=== PATIENT | female | born 1965 | race Caucasian/White ===

== ENCOUNTER 2016-05-01 16:34 | Emergency (ER) | payer OTHER ==
[2016-05-01 16:41] VITALS: BP 121/75; PULSE 83; TEMP 97.9; BMI 32.9
--- NOTE | 2016-05-01 19:26 | PDOC ---
History of Present Illness - General Chief Complaint: Rash Stated Complaint: BITE/FEVER Time Seen by Provider: 05/01/16 19:03 History Source: Patient Exam Limitations: No Limitations - History of Present Illness Initial Comments: 05/01/16 19:29 My chief complaint: itchy painful rash right buttocks History of present illness: Patient is a 50-year-old female with a history of asthma here today complaining of itchy painful rash to her right buttocks that started yesterday. Patient reports having the chickenpox 30 + years ago. Patient reports that area is painful presently a 5 out of 10 patient does not want anything for pain here. Patient reports that she felt feverish yesterday. Patient denies any rash anywhere else.. Patient denies any radiation of rash from right buttocks. 05/01/16 19:31 05/01/16 23:12 Timing/Duration: getting worse Severity: moderate Associated Symptoms: reports: rash Past History - Past Medical History Allergies/Adverse Reactions: Allergies Allergy/AdvReac Type Severity Reaction Status Date / Time No Known Allergies Allergy Verified 05/01/16 16:38 Home Medications: Ambulatory Orders Naproxen [Naprosyn -] 500 mg PO BID #20 tablet 04/17/15 Acyclovir [Zovirax -] 800 mg PO 5XD #35 tablet MDD 5 05/01/16 Asthma: Yes - Immunization History Immunization Up to Date: Yes - Psycho/Social/Smoking Cessation Hx Anxiety: No Suicidal Ideation: No Smoking Status: No Smoking History: Never smoked Have you smoked in the past 12 months: No Number of Cigarettes Smoked Daily: 0 Information on smoking cessation initiated: No Hx Alcohol Use: No Drug/Substance Use Hx: No Substance Use Type: None Review of Systems - Review of Systems Constitutional: No: Symptoms Reported HEENTM: No: Symptoms Reported Respiratory: No: Symptoms reported Cardiac (ROS): No: Symptoms Reported ABD/GI: No: Symptoms Reported Integumentary: Yes: Rash (tiny beige vesicles rt. buttock) Neurological: No: Symptoms reported *Physical Exam - Vital Signs Last Vital Signs Temp Pulse Resp BP Pulse Ox 97.9 F 83 20 121/75 99 05/01/16 16:39 05/01/16 16:39 05/01/16 16:39 05/01/16 16:39 05/01/16 16:39 - Physical Exam General Appearance: Yes: Appropriately Dressed Respiratory/Chest: positive: Lungs Clear, Normal Breath Sounds Cardiovascular: positive: Regular Rhythm, Regular Rate, S1, S2 Integumentary: positive: Rash (tiny beige vesicles rt. mid upper buttock in cluster) Neurologic: positive: Alert, Normal Response, Motor Strength 5/5, Respond to painful stimul (rt. buttock ), Responsive. negative: Sensory Deficit Medical Decision Making - Medical Decision Making 05/01/16 19:31 Patient is a 50-year-old female with a history of asthma here today complaining of itchy painful rash to her right buttocks that started yesterday. Patient reports having the chickenpox 30 + years ago. Patient reports that area is painful presently a 5 out of 10 patient does not want anything for pain here. Patient reports that she felt feverish yesterday. Patient denies any rash anywhere else.. Patient denies any radiation of rash from right buttocks. Right buttock herpes zoster PLAN: acyclovir 800 mg 5 times daily for 7 days Follow-up with primary and ID take Ibuprofen as needed as directed by manufacture patient does not want anything for pain currently here 05/01/16 23:13 *DC/Admit/Observation/Transfer Diagnosis at time of Disposition: Herpes zoster Qualifiers: Herpes zoster complications: without complications Qualified Code(s): B02.9 - Zoster without complications - Discharge Dispostion Disposition: HOME Condition at time of disposition: Stable - Prescriptions Prescriptions: Acyclovir [Zovirax -] 800 mg PO 5XD #35 tablet MDD 5 - Referrals Referrals: Eber aPtel MD [Primary Care Provider] - Saranya Garcia MD [Staff Physician] - - Patient Instructions Additional Instructions: Follow-up with your primary care provider within the next few days Follow-up with infectious disease within the next few days Take ibuprofen as needed as directed by rpg developer for pain Wash her hands thoroughly after touching area on buttocks for being around women Patient voiced understanding of discharge instructions and all questions were answered
== END 2016-05-01 19:59 | disposition home or self-care (01) ==
LOC: JERFT 16:34
DX: B02.9 Zoster without complications (principal)
CPT/HCPCS: 99281-25

== ENCOUNTER 2016-08-08 11:36 | Emergency (ER) | payer OTHER ==
[2016-08-08 11:50] VITALS: BMI 38.4
--- NOTE | 2016-08-08 12:09 | PDOC ---
History of Present Illness - History of Present Illness Initial Comments: 08/08/16 12:38 The patient is a 50 year old female, with a significant past medical history of asthma, who presents to the emergency department with right sided abdominal and right flank pain for 2 days with constipation for 5 days. She reports her pain is constant, localized to her right upper quadrant radiating to her right side. The patient states she feels nauseous, but denies vomiting. She states her pain is exacerbated with drinking fluids. She denies chest pain, shortness of breath, headache and dizziness. She denies fever, chills, vomit, diarrhea and constipation. She denies dysuria, frequency, urgency and hematuria. Allergies: NKDA Social history: Denies toxic habits Timing/Duration: unsure <Fabby Maria - Last Filed: 08/08/16 12:50> <Ale Garcia - Last Filed: 08/09/16 07:34> - General Chief Complaint: Pain, Acute Stated Complaint: RT SIDE PAIN, SOB Time Seen by Provider: 08/08/16 12:07 Past History <Fabby Maria - Last Filed: 08/08/16 12:50> - Past Medical History Asthma: Yes - Immunization History Immunization Up to Date: Yes - Psycho/Social/Smoking Cessation Hx Anxiety: No Suicidal Ideation: No Smoking Status: No Smoking History: Never smoked Have you smoked in the past 12 months: No Number of Cigarettes Smoked Daily: 0 Information on smoking cessation initiated: No Hx Alcohol Use: No Drug/Substance Use Hx: No Substance Use Type: None <Ale Garcia - Last Filed: 08/09/16 07:34> - Past Medical History Allergies/Adverse Reactions: Allergies Allergy/AdvReac Type Severity Reaction Status Date / Time No Known Allergies Allergy Verified 08/08/16 11:50 Home Medications: Ambulatory Orders Ibuprofen [Motrin -] 600 mg PO TID PRN #21 tablet 08/08/16 Tamsulosin HCl [Flomax] 0.4 mg PO HS #14 capsule 08/08/16 Review of Systems - Review of Systems Able to Perform ROS?: Yes Comments:: 08/08/16 12:52 GENERAL/CONSTITUTIONAL: No fever or chills. No weakness. HEAD, EYES, EARS, NOSE AND THROAT: No change in vision. No ear pain or discharge. No sore throat. CARDIOVASCULAR: No chest pain or shortness of breath. RESPIRATORY: No cough, wheezing, or hemoptysis. GASTROINTESTINAL: (+) RUQ, nausea, and constipation. No vomiting, diarrhea GENITOURINARY: (+) Right flank pain. No dysuria, frequency, or change in urination. MUSCULOSKELETAL: No joint or muscle swelling or pain. No neck or back pain. SKIN: No rash NEUROLOGIC: No headache, vertigo, loss of consciousness, or change in strength/ sensation. ENDOCRINE: No increased thirst. No abnormal weight change. HEMATOLOGIC/LYMPHATIC: No anemia, easy bleeding, or history of blood clots. ALLERGIC/IMMUNOLOGIC: No hives or skin allergy. <Fabby Maria - Last Filed: 08/08/16 12:50> *Physical Exam - Vital Signs Last Vital Signs Temp Pulse Resp BP Pulse Ox 98 F 96 H 18 117/74 99 08/08/16 11:47 08/08/16 11:47 08/08/16 11:47 08/08/16 11:47 08/08/16 11:47 <Fabby Maria - Last Filed: 08/08/16 12:50> - Vital Signs Last Vital Signs Temp Pulse Resp BP Pulse Ox 98 F 96 H 18 117/74 99 08/08/16 11:47 08/08/16 11:47 08/08/16 11:47 08/08/16 11:47 08/08/16 11:47 - Physical Exam Comments: GENERAL: Awake, alert, and fully oriented, in no acute distress HEAD: No signs of trauma EYES: PERRLA, EOMI, sclera anicteric, conjunctiva clear ENT: Auricles normal inspection, hearing grossly normal, nares patent, oropharynx clear without exudates. Moist mucosa NECK: Normal ROM, supple, no lymphadenopathy, JVD, or masses LUNGS: Breath sounds equal, clear to auscultation bilaterally. No wheezes, and no crackles HEART: Regular rate and rhythm, normal S1 and S2, no murmurs, rubs or gallops ABDOMEN: Soft, nontender, normoactive bowel sounds. No guarding, no rebound. No masses. +R CVAT. EXTREMITIES: Normal range of motion, no edema. No clubbing or cyanosis. No cords, erythema, or tenderness NEUROLOGICAL: Cranial nerves II through XII grossly intact. Normal speech, normal gait SKIN: Warm, Dry, normal turgor, no rashes or lesions noted. <Ale Garcia - Last Filed: 08/09/16 07:34> ED Treatment Course - LABORATORY CBC & Chemistry Diagram: 08/08/16 12:27 08/08/16 12:27 <Ale Garcia - Last Filed: 08/09/16 07:34> *DC/Admit/Observation/Transfer - Attestations Scribe Attestion: 08/08/16 12:53 Documentation prepared by Fabby Maria, acting as medical technologist prn for Ale Garcia MD, MD <Fabby Maria - Last Filed: 08/08/16 12:50> - Discharge Dispostion Admit: No - Attestations Physician Attestion: 08/08/16 15:[address] results reviewed with her. She states her pain is better. Stable for DC home on flomax and NSAIDs. <Ale Garcia - Last Filed: 08/09/16 07:34> Diagnosis at time of Disposition: Kidney stone on right side - Discharge Dispostion Disposition: HOME Condition at time of disposition: Stable - Prescriptions Prescriptions: Tamsulosin HCl [Flomax] 0.4 mg PO HS #14 capsule Ibuprofen [Motrin -] 600 mg PO TID PRN #21 tablet PRN Reason: Pain - Referrals Referrals: Salvador Marr MD., MD [Staff Physician] - - Patient Instructions Printed Discharge Instructions: DI for Kidney Stones Print Language: YAKUT
[2016-08-08] MEDS ORDERED: SODIUM CHLORIDE 1,000 ML IV STA (12:22)
[2016-08-08] MEDS ORDERED: ACETAMINOPHEN 1000 MG/100 ML VIAL (NON FORMULARY) IVPB ONE (12:22)
[2016-08-08] MEDS ORDERED: ONDANSETRON 4 MG/2 ML VIAL IVPUSH ONE (12:22)
[2016-08-08] MEDS ORDERED: ONDANSETRON 4 MG/2 ML VIAL ONE (12:46)
[2016-08-08] MEDS ORDERED: ACETAMINOPHEN INJECTION 100 ML IVPB ONE (12:46)
[2016-08-08 12:56] LABS: BASOPHIL 1.2 % (0-2.0); EOSINOPHIL 0.9 % (0-4.5); MCH 30.1 pg (25.7-33.7); MCHC 32.4 g/dl (32.0-36.0); MEAN PLT VOLUME 9.4 fl (7.5-11.1); NEUTROPHILS 67.3 % (42.8-82.8); PLATELET COUNT 200 K/MM3 (134-434); RDW 13.5 % (11.6-15.6); WHITE BLOOD COUNT 8.8 K/mm3 (4.0-10.0)
[2016-08-08 13:21] LABS: ALBUMIN 3.3 g/dl (3.4-5.0); BILIRUBIN,TOTAL 0.6 mg/dL (0.2-1.0); CALCIUM 8.8 mg/dL (8.5-10.1); COCKROFT - GAULT 85.272; CREATININE 1.2 mg/dL (0.55-1.02); TOT PROT 6.9 g/dl (6.4-8.2)
[2016-08-08 13:22] LABS: URINE APPEARANCE SLCLOUDY; URINE BILIRUBIN NEGATIVE (NEGATIVE); URINE BLOOD NEGATIVE (NEGATIVE); URINE COLOR YELLOW; URINE GLUCOSE (UA) NEGATIVE (NEGATIVE); URINE KETONE NEGATIVE (NEGATIVE); URINE LEUK ESTERASE NEGATIVE (NEGATIVE); URINE NITRITE NEGATIVE (NEGATIVE); URINE PROTEIN NEGATIVE (NEGATIVE); URINE UROBILINOGEN NEGATIVE E.U./dl (0.2-1.0)
[2016-08-08 16:08] VITALS: BP 124/67; PULSE 74; TEMP 97.7
== END 2016-08-08 16:08 | disposition home or self-care (01) ==
LOC: JER 11:36
PROC: 3E033NZ Introduction of Analgesics, Hypnotics, Sedatives into Peripheral Vein, Percutaneous Approach (ICD-10-PCS; principal; 2016-08-08)
PROC: 3E033GC Introduction of Other Therapeutic Substance into Peripheral Vein, Percutaneous Approach (ICD-10-PCS; 2016-08-08)
DX: N20.0 Calculus of kidney (principal); J45.909 Unspecified asthma, uncomplicated
CPT/HCPCS: 36415; 74176; 80053; 81003; 83690; 84703; 85025; 87086; 96374; 96375; 99284-25

== ENCOUNTER 2018-03-09 11:12 | Inpatient (IN) | payer OTHER ==
[2018-03-09 11:25] VITALS: BMI 37.6
[2018-03-09] MEDS: SODIUM CHLORIDE 1,000 ML IV SCH (12:05)
--- NOTE | 2018-03-09 12:21 | PDOC ---
History of Present Illness - General Chief Complaint: Weakness Stated Complaint: WEAKNESS Time Seen by Provider: 03/09/18 11:37 - History of Present Illness Initial Comments: 03/09/18 12:46 The patient is a 52 year old female with a significant PMH of asthma, hypercholesterolemia, and thyroid issues who presents to the emergency department with numbness to the R side of her body. The patient reports that she woke up this morning not feeling well. Pt reports generalized weakness, no unilateral weakness. Pt states that she also noticed numbness in her R face and arm upon awakening. Last known normal was last night. She also feels like her R eyelid is "swollen". Denies any eye pain. Denies any blurred vision. She denies any fever, chills,nausea, vomiting, diarrhea, constipation, or urinary symptoms. She denies any CP, shortness of breath, headache or dizziness. The patient denies any other complaints. The patient reports a family history of stroke and [place] (father). NIH Stroke Scale - Last Known Well Date/Time & Onset Date Last Known Well: 03/08/18 Time Last Known Well: 22:00 - Initial Evaluation Level of consciousness: Alert Ask patient the month and their age: Answers both correctly Ask patient to open & close eyes; make fist and let go: Obeys both correctly Best gaze (horizontal eye movement): Normal Visual field testing: No visual field loss Facial paresis (Show teeth/raise eyebrows/close eyes tight): Minor paralysis ( flattened nasolabial fold, asymmetry on smiling) Motor Function: Left Arm: Normal Motor Function: Right Arm: Normal (extends arm 90 (or 45) degrees for 10 seconds without drift Motor Function: Left Leg: Normal (extends leg 30 degrees for 5 seconds without drift) Motor Function: Right Leg: Normal (extends leg 30 degrees for 5 seconds without drift) Limb Ataxia: No ataxia Sensory(Use pinprick test arms,legs,trunk,face/side to side): Mild to moderate decrease in sensation Best language (Describe picture, name items, read sentences): No Aphasia Dysarthria (read several words): Normal articulation Extinction and Inattention: No abnormality - Total Score NIH Stroke Scale Score: 2 Past History - Past Medical History Allergies/Adverse Reactions: Allergies Allergy/AdvReac Type Severity Reaction Status Date / Time No Known Allergies Allergy Verified 04/15/17 11:50 Home Medications: Ambulatory Orders Atorvastatin Ca [Lipitor] 40 mg PO HS 03/09/18 Levothyroxine [Synthroid -] 125 mcg PO DAILY 03/09/18 Phentermine HCl [Adipex-P] 37.5 mg PO HS 03/09/18 Asthma: Yes COPD: No HTN: Yes Hypercholesterolemia: Yes - Immunization History Immunization Up to Date: Yes - Suicide/Smoking/Psychosocial Hx Smoking Status: No Smoking History: Never smoked Have you smoked in the past 12 months: No Number of Cigarettes Smoked Daily: 0 Hx Alcohol Use: No Drug/Substance Use Hx: No Substance Use Type: None Review of Systems - Review of Systems Comments:: 03/09/18 12:45 "GENERAL/CONSTITUTIONAL:(+) generalized weakness. No fever or chills. HEAD, EYES, EARS, NOSE AND THROAT: No change in vision. No ear pain or discharge. No sore throat. CARDIOVASCULAR: No chest pain. No shortness of breath, no loss of consciousness RESPIRATORY: No cough, wheezing, or hemoptysis. GASTROINTESTINAL: No nausea, vomiting, diarrhea or constipation. GENITOURINARY: No dysuria, frequency, or change in urination. MUSCULOSKELETAL: No joint or muscle swelling or pain. No neck or back pain. SKIN : No rash NEUROLOGIC: + R face and arm numbness, No vertigo, no change in strength ENDOCRINE: No increased thirst. No abnormal weight change. HEMATOLOGIC/LYMPHATIC: No anemia, easy bleeding, or history of blood clots. ALLERGIC/IMMUNOLOGIC: No hives or skin allergy. *Physical Exam - Vital Signs Last Vital Signs Temp Pulse Resp BP Pulse Ox 98 F 81 16 134/74 98 03/09/18 11:53 03/09/18 11:23 03/09/18 11:23 03/09/18 11:23 03/09/18 11:57 - Physical Exam Comments: 03/09/18 12:32 GENERAL: Awake, alert, and fully oriented, in no acute distress. HEAD: No signs of trauma EYES: PERRLA, EOMI, sclera anicteric, conjunctiva clear ENT: Auricles normal inspection, hearing grossly normal, nares patent, oropharynx clear without exudates. Moist mucosa NECK: Nontender, no stepoffs, Normal ROM, supple, no lymphadenopathy, JVD, or masses LUNGS: Breath sounds equal, clear to auscultation bilaterally. No wheezes, and no crackles HEART: Regular rate and rhythm, normal S1 and S2, no murmurs, rubs or gallops ABDOMEN: Soft, nontender, normoactive bowel sounds. No guarding, no rebound. No masses EXTREMITIES: Normal range of motion, no edema. No clubbing or cyanosis. No cords, erythema, or tenderness NEUROLOGICAL: + R eyelid droop, diminished sensation R face and RUE, 5/5 strength in all extremities, Normal speech, normal gait, normal cerebellar function SKIN: Warm, Dry, normal turgor, no rashes or lesions noted. Heart Score/ECG Review - ST and T Comment:: 03/09/18 12:32 NSR, no HARISH/STDs, TWI in V3, intervals wnl, axis wnl, Rate76 ED Treatment Course - LABORATORY CBC & Chemistry Diagram: 03/09/18 12:15 03/09/18 12:15 - RADIOLOGY Radiology Studies Ordered: Category Date Time Status HEAD CT (STROKE) [CT] Stat CT Scan 03/09/18 12:00 Ordered Medical Decision Making - Critical Care Time Total Critical Care Time (minutes): 60 Critical Care Statement: The care of this patient involved high complexity decision making to prevent further life threatening deterioration of the patient 's condition and/or to evaluate & treat vital organ system(s) failure or risk of failure. - Medical Decision Making 03/09/18 12:22 52 F with R sided facial and arm numbness since awakening this morning. Also noted to have ? R eyelid droop. Pt with no other neuro deficits on exam, but will evaluate for CVA given risk factors and family history. Pt with NIHSS 2, outside window for tPA. - Labs - CT head - Neuro consult 03/09/18 13:47 CT negative Labs wnl Dr. Thakur in ED to evaluate pt. 03/09/18 14:[address] Ayoub *DC/Admit/Observation/Transfer Diagnosis at time of Disposition: Numbness - Discharge Dispostion Decision to Admit order: Yes - Referrals Referrals: Cristina Cardenas [Primary Care Provider] - - Patient Instructions - Post Discharge Activity - Attestations Physician Attestion: 03/09/18 14:42 I, Dr. Jewel Daniels MD, attest that this document has been prepared under my direction and personally reviewed by me in its entirety. I further attest, that it accurately reflects all work, treatment, procedures and medical decision -making performed by me.
[2018-03-09 12:33] LABS: BASO % 0.7 % (0-2.0); EOS % 2.5 % (0-4.5); HEMATOCRIT 35.9 % (32.4-45.2); HEMOGLOBIN 11.5 GM/dL (10.7-15.3); MCH 29.5 pg (25.7-33.7); MCHC 32.2 g/dl (32.0-36.0); MEAN CELL VOLUME 91.8 fl (80-96); MEAN PLT VOLUME 9.4 fl (7.5-11.1); MONO % 5.1 % (3.8-10.2); NEUT % 58.7 % (42.8-82.8); PLATELET COUNT 214 K/MM3 (134-434); RBC 3.91 M/mm3 (3.60-5.2); RDW 13.2 % (11.6-15.6); WHITE BLOOD COUNT 7.6 K/mm3 (4.0-10.0)
[2018-03-09 12:46] LABS: INR 1.12 (0.83-1.09); PROTHROMBIN TIME (PATIENT) 13.2 SEC (9.7-13.0)
[2018-03-09 13:03] LABS: ALBUMIN 3.6 g/dl (3.4-5.0); ALK PHOS 152 U/L (45-117); ANION GAP 5 MMOL/L (8-16); BLOOD UREA NITROGEN 14 mg/dL (7-18); CALCIUM 8.8 mg/dL (8.5-10.1); CHLORIDE 111 mmol/L (98-107); CHOLESTEROL 120 mg/dL (50-200); CO2 29 mmol/L (21-32); GLUCOSE,RANDOM 88 mg/dL (74-106); HDL CHOLESTEROL 37 mg/dL (40-60); POTASSIUM 4.5 mmol/L (3.5-5.1); SGOT/AST 20 U/L (15-37); SGPT/ALT 16 U/L (13-61); SODIUM 144 mmol/L (136-145); TOT PROT 7.2 g/dl (6.4-8.2); TRIGLYCERIDES 196 mg/dL (0-150)
[2018-03-09 13:35] LABS: URINE APPEARANCE CLEAR; URINE BILIRUBIN NEGATIVE (<2.0 mg/dL); URINE COLOR LTYELLOW; URINE GLUCOSE (UA) NEGATIVE (NEGATIVE); URINE KETONE NEGATIVE (NEGATIVE); URINE LEUK ESTERASE NEGATIVE (NEGATIVE); URINE NITRITE NEGATIVE (NEGATIVE); URINE PROTEIN NEGATIVE (NEGATIVE); URINE UROBILINOGEN NEGATIVE mg/dL (0.2-1.0)
--- NOTE | 2018-03-09 16:14 | CON.NEURO ---
Consult Consult Specialty:: Blaze Referred by:: ER - History of Present Illness History of Present Illness: 52 years old woman with PMH CAD OA BA High Chol Patient had sudden onset of right facial swelling numbness and neck pain No travel No rash No tick bite I saw the patient in the emergency room the daughter was at the bedside patient with no headache no weakness or numbness in the arms and legs. CAT scan of the head revealed no evidence for acute pathology. - History Source History Provided By: Patient - Alcohol/Substance Use Hx Alcohol Use: No - Smoking History Smoking history: Never smoked Have you smoked in the past 12 months: No Aproximately how many cigarettes per day: 0 Home Medications - Allergies Allergies/Adverse Reactions: Allergies Allergy/AdvReac Type Severity Reaction Status Date / Time No Known Allergies Allergy Verified 08/08/16 11:50 - Home Medications Home Medications: Ambulatory Orders Atorvastatin Ca [Lipitor] 40 mg PO HS 03/09/18 Levothyroxine [Synthroid -] 125 mcg PO DAILY 03/09/18 Phentermine HCl [Adipex-P] 37.5 mg PO HS 03/09/18 Physical Exam-Neuro Vital Signs: Vital Signs Temperature 98.4 F 03/09/18 15:49 Pulse Rate 78 03/09/18 15:49 Respiratory Rate 17 03/09/18 15:49 Blood Pressure 123/82 03/09/18 15:49 O2 Sat by Pulse Oximetry (%) 98 03/09/18 15:49 Labs: CBC, BMP 03/09/18 12:15 03/09/18 12:15 INR, PTT INR 1.12 (0.83-1.09) H 03/09/18 12:15 - Neuro Exam Level Of Consciousness: Yes: Oriented to Person, Oriented to Place, Oriented to Time Eyes: Yes: PERRLA Speech: WNL Dominant Hand: Right Cranial Nerves II-XII Intact: Yes Gag: Present Response to light touch: Normal Response to pain prick: Normal Response to temperature: Normal Response to vibration: Normal Motor Strength: 4/5: Left Arm, Right Arm, Left Leg, Right Leg Imaging - Results Cat Scan: Image Reviewed Problem List - Problems (1) Numbness Assessment/Plan: 52-year-old woman with history of asthma presents with right facial swelling and numbness gross neurological examination with no evidence of acute central nervous system pathology. Questionable Muhammad's palsy 1. Neurological she can go home 2. increase by mouth fluid intake. 3. MRI of the brain with no contrast. 4. Lyme titers. 5. check ESR C-reactive protein. 6. One week of Medrol Dosepak Code(s): R20.0 - ANESTHESIA OF SKIN
[2018-03-09] MEDS ORDERED: FLU VACCINE QUAD 60 MCG/0.5 ML (MDV 18-19) IM ONE (17:10)
--- NOTE | 2018-03-09 18:59 | HP ---
Admitting History and Physical - Primary Care Physician PCP: López Ayoub - Admission History of Present Illness: 52 year old female with a significant PMH of asthma, hypercholesterolemia, and thyroid issues who presents to the emergency department with numbness to the R side of her body. The patient reports that she woke up this morning not feeling well. Pt reports generalized weakness, no unilateral weakness. Pt states that she also noticed numbness in her R face and arm upon awakening. Last known normal was last night. She also feels like her R eyelid is "swollen". Denies any eye pain. Denies any blurred vision. She denies any fever, chills,nausea, vomiting, diarrhea, constipation, or urinary symptoms. She denies any CP, shortness of breath, headache or dizziness. - Past Medical History Cardiovascular: Yes: Hyperlipdemia Pulmonary: Yes: Asthma - Smoking History Smoking history: Never smoked Have you smoked in the past 12 months: No Aproximately how many cigarettes per day: 0 - Alcohol/Substance Use Hx Alcohol Use: No Home Medications - Allergies Allergies/Adverse Reactions: Allergies Allergy/AdvReac Type Severity Reaction Status Date / Time No Known Allergies Allergy Verified 08/08/16 11:50 - Home Medications Home Medications: Ambulatory Orders Atorvastatin Ca [Lipitor] 40 mg PO HS 03/09/18 Levothyroxine [Synthroid -] 125 mcg PO DAILY 03/09/18 Phentermine HCl [Adipex-P] 37.5 mg PO HS 03/09/18 Physical Examination Vital Signs: Vital Signs Temperature 98 F 03/09/18 16:00 Pulse Rate 70 03/09/18 16:00 Respiratory Rate 17 03/09/18 17:33 Blood Pressure 116/64 03/09/18 16:00 O2 Sat by Pulse Oximetry (%) 98 03/09/18 17:33 Constitutional: Yes: No Distress HENT: Yes: Atraumatic Cardiovascular: Yes: Regular Rate and Rhythm Respiratory: Yes: CTA Bilaterally Gastrointestinal: Yes: Normal Bowel Sounds Extremities: Yes: WNL Edema: No Neurological: Yes: Alert, Oriented Labs: CBC, BMP 03/09/18 12:15 03/09/18 12:15 Problem List - Problems (1) Numbness Assessment/Plan: still R side of face numb Code(s): R20.0 - ANESTHESIA OF SKIN Assessment/Plan Laboratory Tests 03/09/18 03/09/18 03/09/18 12:15 12:15 12:15 WBC 7.6 RBC 3.91 Hgb 11.5 Hct 35.9 MCV 91.8 MCH 29.5 MCHC 32.2 RDW 13.2 Plt Count 214 MPV 9.4 Absolute Neuts (auto) 4.4 Neutrophils % 58.7 Lymphocytes % 33.0 D Monocytes % 5.1 Eosinophils % 2.5 D Basophils % 0.7 Nucleated RBC % 0 PT with INR 13.20 H INR 1.12 H Sodium 144 Potassium 4.5 Chloride 111 H Carbon Dioxide 29 Anion Gap 5 L BUN 14 Creatinine 1.0 Creat Clearance w eGFR 58.45 Random Glucose 88 Hemoglobin A1c % Calcium 8.8 Total Bilirubin 1.0 AST 20 ALT 16 Alkaline Phosphatase 152 H Creatine Kinase 54 Troponin I < 0.02 Total Protein 7.2 Albumin 3.6 Triglycerides 196 H Cholesterol 120 Total LDL Cholesterol 66 HDL Cholesterol 37 L Urine Color Urine Appearance Urine pH Ur Specific Ly[place] Urine Protein Urine Glucose (UA) Urine Ketones Urine Blood Urine Nitrite Urine Bilirubin Urine Urobilinogen Ur Leukocyte Esterase Urine HCG, Qual Blood Type Antibody Screen 03/09/18 03/09/18 03/09/18 12:31 12:38 12:38 WBC RBC Hgb Hct MCV MCH MCHC RDW Plt Count MPV Absolute Neuts (auto) Neutrophils % Lymphocytes % Monocytes % Eosinophils % Basophils % Nucleated RBC % PT with INR INR Sodium Potassium Chloride Carbon Dioxide Anion Gap BUN Creatinine Creat Clearance w eGFR Random Glucose Hemoglobin A1c % Calcium Total Bilirubin AST ALT Alkaline Phosphatase Creatine Kinase Troponin I Total Protein Albumin Triglycerides Cholesterol Total LDL Cholesterol HDL Cholesterol Urine Color Ltyellow Urine Appearance Clear Urine pH 6.0 Ur Specific [place] 1.008 L Urine Protein Negative Urine Glucose (UA) Negative Urine Ketones Negative Urine Blood Negative Urine Nitrite Negative Urine Bilirubin Negative Urine Urobilinogen Negative Ur Leukocyte Esterase Negative Urine HCG, Qual Negative Blood Type B POSITIVE Antibody Screen Negative 03/09/18 03/09/18 14:00 14:00 WBC RBC Hgb Hct MCV MCH MCHC RDW Plt Count MPV Absolute Neuts (auto) Neutrophils % Lymphocytes % Monocytes % Eosinophils % Basophils % Nucleated RBC % PT with INR INR Sodium Potassium Chloride Carbon Dioxide Anion Gap BUN Creatinine Creat Clearance w eGFR Random Glucose Hemoglobin A1c % 4.4 Calcium Total Bilirubin AST ALT Alkaline Phosphatase Creatine Kinase Troponin I Total Protein Albumin Triglycerides Cholesterol Total LDL Cholesterol HDL Cholesterol Urine Color Urine Appearance Urine pH Ur Specific Lyons Urine Protein Urine Glucose (UA) Urine Ketones Urine Blood Urine Nitrite Urine Bilirubin Urine Urobilinogen Ur Leukocyte Esterase Urine HCG, Qual Blood Type B POSITIVE Antibody Screen Active Medications Generic Name Dose Route Start Last Admin Trade Name Freq PRN Reason Stop Dose Admin Sodium Chloride 1,000 mls @ 42 mls/hr 03/09/18 12:00 03/09/18 12:05 Normal Saline - IV 42 mls/hr ASDIR SHANNON Administration
[2018-03-09] MEDS: ATORVASTATIN CA 40 MG TABLET (FP) PO SCH (21:50)
[2018-03-09] MEDS ORDERED: PHENTERMINE HCL 37.5 MG PO SCH (22:00)
[2018-03-10] MEDS: LEVOTHYROXINE NA 125 MCG TABLET (FP) PO SCH (06:05)
[2018-03-10 07:52] LABS: BASO % 0.8 % (0-2.0); EOS % 2.8 % (0-4.5); HEMATOCRIT 35.1 % (32.4-45.2); HEMOGLOBIN 11.2 GM/dL (10.7-15.3); MCH 29.5 pg (25.7-33.7); MCHC 31.9 g/dl (32.0-36.0); MEAN CELL VOLUME 92.5 fl (80-96); MEAN PLT VOLUME 9.5 fl (7.5-11.1); MONO % 5.2 % (3.8-10.2); NEUT % 56.2 % (42.8-82.8); PLATELET COUNT 216 K/MM3 (134-434); RDW 13.2 % (11.6-15.6); WHITE BLOOD COUNT 7.5 K/mm3 (4.0-10.0)
[2018-03-10 08:31] LABS: ALBUMIN 3.4 g/dl (3.4-5.0); ALK PHOS 157 U/L (45-117); ANION GAP 7 MMOL/L (8-16); BILIRUBIN,TOTAL 1.4 mg/dL (0.2-1); BLOOD UREA NITROGEN 16 mg/dL (7-18); CALCIUM 8.4 mg/dL (8.5-10.1); CHLORIDE 110 mmol/L (98-107); CO2 29 mmol/L (21-32); GLUCOSE,RANDOM 87 mg/dL (74-106); POTASSIUM 4.2 mmol/L (3.5-5.1); SGOT/AST 14 U/L (15-37); SGPT/ALT 17 U/L (13-61); SODIUM 145 mmol/L (136-145); TOT PROT 7.1 g/dl (6.4-8.2)
--- NOTE | 2018-03-10 11:49 | EKG ---
Test Reason : Blood Pressure : / mmHG Vent. Rate : 076 BPM Atrial Rate : 076 BPM P-R Int : 134 ms QRS Dur : 088 ms QT Int : 402 ms P-R-T Axes : -19 027 028 degrees QTc Int : 452 ms NORMAL SINUS RHYTHM NORMAL ECG WHEN COMPARED WITH ECG OF 05-NOV-2014 23:15, NO SIGNIFICANT CHANGE WAS FOUND Confirmed by ANTOINETTE CASTELLANOS MD ([id number]) on 03/10/2018 11:48:30 AM Referred By: Confirmed By:ANTOINETTE CASTELLANOS MD
--- NOTE | 2018-03-10 14:35 | PN ---
Progress Note, Physician - Current Medication List Current Medications: Active Medications Atorvastatin Calcium (Lipitor -) 40 mg PO HS [facility] Last Admin: 03/09/18 21:50 Dose: 40 mg Sodium Chloride (Normal Saline -) 1,000 mls @ 42 mls/hr IV ASDIR [facility] Last Admin: 03/09/18 12:05 Dose: 42 mls/hr Levothyroxine Sodium (Synthroid -) 125 mcg PO 0700 [facility] Last Admin: 03/10/18 06:05 Dose: 125 mcg Non-Formulary Medication (Phentermine Hcl [Adipex-P]) 37.5 mg PO HS [facility] - Objective Vital Signs: Vital Signs Temperature 97.8 F 03/10/18 09:36 Pulse Rate 87 03/10/18 09:36 Respiratory Rate 20 03/10/18 09:37 Blood Pressure 111/88 03/10/18 09:36 O2 Sat by Pulse Oximetry (%) 99 03/10/18 09:37 Constitutional: Yes: No Distress HENT: Yes: Other (R eye droopy) Cardiovascular: Yes: Regular Rate and Rhythm Respiratory: Yes: CTA Bilaterally Gastrointestinal: Yes: Normal Bowel Sounds Extremities: Yes: WNL Edema: No Neurological: Yes: Alert, Oriented Labs: CBC, BMP 03/10/18 06:50 03/10/18 06:50 INR, PTT INR 1.12 (0.83-1.09) H 03/09/18 12:15 Problem List - Problems (1) Numbness Code(s): R20.0 - ANESTHESIA OF SKIN (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
--- NOTE | 2018-03-10 15:07 | CON.ID ---
Consult Consult Specialty:: infectious diseases Reason for Consultation:: numbness of the rt side of the face. rt eye with complete shut down - History of Present Illness Chief Complaint: numbness on the rt side of face with shut down of rt eye History of Present Illness: 52 year old female with a significant PMH of asthma, hypercholesterolemia, and thyroid issues admitted with numbness to the R side of her body. The patient reports that she woke up this morning not feeling well. Pt reports generalized weakness, no unilateral weakness. Pt states that she also noticed numbness in her R face and arm upon awakening. Last known normal was last night. She also feels like her R eyelid is "swollen". Denies any eye pain. Denies any blurred vision. She denies any fever, chills,nausea, vomiting, diarrhea, constipation, or urinary symptoms. She denies any CP, shortness of breath, headache or dizziness. her eye is completely closed - History Source History Provided By: Patient Limitations to Obtaining History: No Limitations - Past Medical History Cardio/Vascular: Yes: Hyperlipdemia Pulmonary: Yes: Asthma - Alcohol/Substance Use Hx Alcohol Use: No - Smoking History Smoking history: Never smoked Have you smoked in the past 12 months: No Aproximately how many cigarettes per day: 0 Home Medications - Allergies Allergies/Adverse Reactions: Allergies Allergy/AdvReac Type Severity Reaction Status Date / Time No Known Allergies Allergy Verified 08/08/16 11:50 - Home Medications Home Medications: Ambulatory Orders RX: Atorvastatin Ca [Lipitor] 40 mg PO HS 03/09/18 RX: Levothyroxine [Synthroid -] 125 mcg PO DAILY 03/09/18 RX: Phentermine HCl [Adipex-P] 37.5 mg PO HS 03/09/18 Peg 400/Hypromellose/Glycerin [Eye Drop Tears] 15 ml OP BID #1 drops 03/13/18 RX: Prednisone 10 mg PO ASDIR #30 tablet 03/13/18 Review of Systems - Review of Systems Constitutional: reports: No Symptoms Eyes: reports: Other (closure of rt eye) HENT: reports: Other (numbness on the rt side of the face) Neck: reports: No Symptoms Cardiovascular: reports: No Symptoms Respiratory: reports: No Symptoms Gastrointestinal: reports: No Symptoms Genitourinary: reports: No Symptoms Musculoskeletal: reports: No Symptoms Integumentary: reports: No Symptoms Neurological: reports: Other (numbess on rt side of the face) Endocrine: reports: No Symptoms Hematology/Lymphatic: reports: No Symptoms Psychiatric: reports: No Symptoms Physical Exam Vital Signs: Vital Signs Temperature 97.8 F 03/10/18 09:36 Pulse Rate 87 03/10/18 09:36 Respiratory Rate 20 03/10/18 09:37 Blood Pressure 111/88 03/10/18 09:36 O2 Sat by Pulse Oximetry (%) 99 03/10/18 09:37 Constitutional: Yes: Well Nourished, Calm, Mild Distress Eyes: Yes: Other (rt eye closure) HENT: Yes: Atraumatic, Other (numbness on the rt side of the face) Neck: Yes: Supple, Trachea Midline Cardiovascular: Yes: Regular Rate and Rhythm Respiratory: Yes: Regular, CTA Bilaterally Gastrointestinal: Yes: Normal Bowel Sounds, Soft Musculoskeletal: Yes: WNL Extremities: Yes: WNL Neurological: Yes: Alert, Oriented, Numbness (rt side of the face) Psychiatric: Yes: Alert, Oriented Labs: CBC, BMP 03/10/18 06:50 03/10/18 06:50 Imaging - Results Cat Scan: Report Reviewed, Image Reviewed MRI: Report Reviewed, Image Reviewed Assessment/Plan numbness bells palsy obesity r/o lymes plan continue ceftriaxone await for all reports if all reports normal will stop ceftriaxone neuro rest as per the team
[2018-03-10] MEDS ORDERED: DEXTROSE 5%-WATER - 50 ML IVPB ONE (15:42)
[2018-03-10] MEDS ORDERED: cefTRIAXone SODIUM 1 GM VIAL ONE (15:42)
[2018-03-10] MEDS: predniSONE 20 MG TABLET (UD) PO SCH (15:45)
[2018-03-10] MEDS: CEFTRIAXONE 1 GM in DEXTROSE 5%-WATER - 50 ML IVPB SCH (15:45)
[2018-03-10] MEDS: SODIUM CHLORIDE 1,000 ML IV SCH (15:45)
[2018-03-10] MEDS: ATORVASTATIN CA 40 MG TABLET (FP) PO SCH (21:11)
[2018-03-11] MEDS: LEVOTHYROXINE NA 125 MCG TABLET (FP) PO SCH (06:43)
[2018-03-11] MEDS ORDERED: DEXTROSE 5%-WATER - 50 ML IVPB ONE (09:02)
[2018-03-11] MEDS ORDERED: cefTRIAXone SODIUM 1 GM VIAL ONE (09:02)
[2018-03-11] MEDS: CEFTRIAXONE 1 GM in DEXTROSE 5%-WATER - 50 ML IVPB SCH (09:38)
[2018-03-11] MEDS: predniSONE 20 MG TABLET (UD) PO SCH (09:38)
--- NOTE | 2018-03-11 11:34 | PN ---
Progress Note, Physician History of Present Illness: patient stable opens her eyes still with numbness of the face - Current Medication List Current Medications: Active Medications Atorvastatin Calcium (Lipitor -) 40 mg PO HS [facility] Last Admin: 03/10/18 21:11 Dose: 40 mg Sodium Chloride (Normal Saline -) 1,000 mls @ 42 mls/hr IV ASDIR [facility] Last Admin: 03/10/18 15:45 Dose: Not Given Ceftriaxone Sodium 1 gm/ (Dextrose) 50 mls @ 100 mls/hr IVPB DAILY [facility]; Protocol Last Admin: 03/11/18 09:38 Dose: 100 mls/hr Levothyroxine Sodium (Synthroid -) 125 mcg PO 0700 [facility] Last Admin: 03/11/18 06:43 Dose: 125 mcg Non-Formulary Medication (Phentermine Hcl [Adipex-P]) 37.5 mg PO HS [facility] Prednisone (Deltasone -) 40 mg PO DAILY [facility] Last Admin: 03/11/18 09:38 Dose: 40 mg - Objective Vital Signs: Vital Signs Temperature 98.2 F 03/11/18 05:48 Pulse Rate 82 03/11/18 10:00 Respiratory Rate 20 03/11/18 10:56 Blood Pressure 120/65 03/11/18 10:00 O2 Sat by Pulse Oximetry (%) 98 03/11/18 10:56 Constitutional: Yes: No Distress, Calm Cardiovascular: Yes: Regular Rate and Rhythm Respiratory: Yes: Regular, CTA Bilaterally Gastrointestinal: Yes: Normal Bowel Sounds, Soft Musculoskeletal: Yes: WNL Extremities: Yes: WNL Neurological: Yes: Alert, Oriented Psychiatric: Yes: Alert, Oriented Labs: CBC, BMP 03/10/18 06:50 03/10/18 06:50 INR, PTT INR 1.12 (0.83-1.09) H 03/09/18 12:15 Assessment/Plan numbness bells palsy obesity lymes titres noted plan will stop ceftriaxone will send stat esr crp neuro on case rest as per the team
--- NOTE | 2018-03-11 18:18 | PN ---
Progress Note, Physician History of Present Illness: feeling better - Current Medication List Current Medications: Active Medications Atorvastatin Calcium (Lipitor -) 40 mg PO HS [facility] Last Admin: 03/10/18 21:11 Dose: 40 mg Levothyroxine Sodium (Synthroid -) 125 mcg PO 0700 [facility] Last Admin: 03/11/18 06:43 Dose: 125 mcg Non-Formulary Medication (Phentermine Hcl [Adipex-P]) 37.5 mg PO HS [facility] Prednisone (Deltasone -) 40 mg PO DAILY [facility] Last Admin: 03/11/18 09:38 Dose: 40 mg - Objective Vital Signs: Vital Signs Temperature 98.4 F 03/11/18 14:05 Pulse Rate 84 03/11/18 14:05 Respiratory Rate 20 03/11/18 14:05 Blood Pressure 118/78 03/11/18 14:05 O2 Sat by Pulse Oximetry (%) 98 03/11/18 10:56 Constitutional: Yes: No Distress HENT: Yes: Atraumatic, Other (R eye open normal like other eye) Neck: Yes: Supple Cardiovascular: Yes: Regular Rate and Rhythm Respiratory: Yes: CTA Bilaterally Extremities: Yes: WNL Edema: No Neurological: Yes: Alert, Oriented Labs: CBC, BMP 03/10/18 06:50 03/10/18 06:50 INR, PTT INR 1.12 (0.83-1.09) H 03/09/18 12:15 Problem List - Problems (1) Numbness Assessment/Plan: still R side of face numb Code(s): R20.0 - ANESTHESIA OF SKIN (2) Borges's palsy Assessment/Plan: on prednisone Code(s): G51.0 - BORGES'S PALSY
[2018-03-11] MEDS: ATORVASTATIN CA 40 MG TABLET (FP) PO SCH (21:28)
[2018-03-12] MEDS: LEVOTHYROXINE NA 125 MCG TABLET (FP) PO SCH (06:32)
[2018-03-12] MEDS: predniSONE 20 MG TABLET (UD) PO SCH (09:34)
--- NOTE | 2018-03-12 11:57 | PN ---
Progress Note, Physician - Current Medication List Current Medications: Active Medications Atorvastatin Calcium (Lipitor -) 40 mg PO HS [facility] Last Admin: 03/11/18 21:28 Dose: 40 mg Levothyroxine Sodium (Synthroid -) 125 mcg PO 0700 [facility] Last Admin: 03/12/18 06:32 Dose: 125 mcg Non-Formulary Medication (Phentermine Hcl [Adipex-P]) 37.5 mg PO HS [facility] Prednisone (Deltasone -) 40 mg PO DAILY [facility] Last Admin: 03/12/18 09:34 Dose: 40 mg - Objective Vital Signs: Vital Signs Temperature 98.3 F 03/12/18 10:00 Pulse Rate 79 03/12/18 10:00 Respiratory Rate 18 03/12/18 10:00 Blood Pressure 120/41 L 03/12/18 10:00 O2 Sat by Pulse Oximetry (%) 98 03/12/18 09:00 Constitutional: Yes: No Distress HENT: Yes: Atraumatic Neck: Yes: Supple Cardiovascular: Yes: Regular Rate and Rhythm Respiratory: Yes: CTA Bilaterally Gastrointestinal: Yes: Normal Bowel Sounds Extremities: Yes: WNL Edema: No Peripheral Pulses WNL: Yes Neurological: Yes: Alert, Oriented Labs: CBC, BMP 03/10/18 06:50 03/10/18 06:50 INR, PTT INR 1.12 (0.83-1.09) H 03/09/18 12:15 Problem List - Problems (1) Numbness Code(s): R20.0 - ANESTHESIA OF SKIN (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
--- NOTE | 2018-03-12 14:27 | PN ---
Progress Note, Physician History of Present Illness: stable eye normal still with numbness on the rt side of the face - Current Medication List Current Medications: Active Medications Atorvastatin Calcium (Lipitor -) 40 mg PO HS [facility] Last Admin: 03/11/18 21:28 Dose: 40 mg Levothyroxine Sodium (Synthroid -) 125 mcg PO 0700 [facility] Last Admin: 03/12/18 06:32 Dose: 125 mcg Non-Formulary Medication (Phentermine Hcl [Adipex-P]) 37.5 mg PO HS [facility] Prednisone (Deltasone -) 40 mg PO DAILY [facility] Last Admin: 03/12/18 09:34 Dose: 40 mg - Objective Vital Signs: Vital Signs Temperature 98.3 F 03/12/18 10:00 Pulse Rate 79 03/12/18 10:00 Respiratory Rate 18 03/12/18 10:00 Blood Pressure 120/41 L 03/12/18 10:00 O2 Sat by Pulse Oximetry (%) 98 03/12/18 09:00 Constitutional: Yes: No Distress, Calm, Obese HENT: Yes: Other (numbness on rt side of the face) Cardiovascular: Yes: Regular Rate and Rhythm Respiratory: Yes: Regular, CTA Bilaterally Gastrointestinal: Yes: Normal Bowel Sounds, Soft Musculoskeletal: Yes: WNL Extremities: Yes: WNL Neurological: Yes: Alert, Oriented Psychiatric: Yes: Alert, Oriented Labs: CBC, BMP 03/10/18 06:50 03/10/18 06:50 INR, PTT INR 1.12 (0.83-1.09) H 03/09/18 12:15 Assessment/Plan numbness bells palsy obesity lymes titres noted plan continue to monitor no abx at this point rest as per the team eye has improved
--- NOTE | 2018-03-12 14:43 | PN ---
Progress Note, Physician History of Present Illness: events noted Chart reviwed Alert awake Feels better face looks better Seen by ID - Current Medication List Current Medications: Active Medications Atorvastatin Calcium (Lipitor -) 40 mg PO HS [facility] Last Admin: 03/11/18 21:28 Dose: 40 mg Levothyroxine Sodium (Synthroid -) 125 mcg PO 0700 [facility] Last Admin: 03/12/18 06:32 Dose: 125 mcg Non-Formulary Medication (Phentermine Hcl [Adipex-P]) 37.5 mg PO HS [facility] Prednisone (Deltasone -) 40 mg PO DAILY [facility] Last Admin: 03/12/18 09:34 Dose: 40 mg - Objective Vital Signs: Vital Signs Temperature 98.3 F 03/12/18 10:00 Pulse Rate 79 03/12/18 10:00 Respiratory Rate 18 03/12/18 10:00 Blood Pressure 120/41 L 03/12/18 10:00 O2 Sat by Pulse Oximetry (%) 98 03/12/18 09:00 Constitutional: Yes: Well Nourished Eyes: Yes: WNL HENT: Yes: WNL Neck: Yes: WNL Neurological: Yes: WNL, Alert, Oriented, Babinski negative, Facial Droop ...Motor Strength: WNL Labs: CBC, BMP 03/10/18 06:50 03/10/18 06:50 INR, PTT INR 1.12 (0.83-1.09) H 03/09/18 12:15 Problem List - Problems (1) Numbness Assessment/Plan: [place] Palsy No CVA Neuro ok to go home eye drops Code(s): R20.0 - ANESTHESIA OF SKIN
[2018-03-12] MEDS: ATORVASTATIN CA 40 MG TABLET (FP) PO SCH (22:28)
[2018-03-13] MEDS: LEVOTHYROXINE NA 125 MCG TABLET (FP) PO SCH (06:43)
[2018-03-13 10:46] VITALS: BP 123/70; PULSE 72; TEMP 98
[2018-03-13] MEDS: predniSONE 20 MG TABLET (UD) PO SCH (10:47)
--- NOTE | 2018-03-13 11:42 | DS ---
Physical Examination Vital Signs: Vital Signs Temperature 98 F 03/13/18 10:00 Pulse Rate 72 03/13/18 10:00 Respiratory Rate 20 03/13/18 10:00 Blood Pressure 123/70 03/13/18 10:00 O2 Sat by Pulse Oximetry (%) 98 03/13/18 04:00 Constitutional: Yes: No Distress HENT: Yes: Atraumatic Cardiovascular: Yes: Regular Rate and Rhythm Respiratory: Yes: CTA Bilaterally Gastrointestinal: Yes: Normal Bowel Sounds Extremities: Yes: WNL Neurological: Yes: Alert, Oriented Labs: CBC, BMP 03/10/18 06:50 03/10/18 06:50 Discharge Summary Reason For Visit: NUMBNESS Current Active Problems Muhammad's palsy (Acute) Numbness (Acute) - Instructions Referrals: López Ayoub MD [Staff Physician] - Disposition: HOME - Home Medications Comprehensive Discharge Medication List: Ambulatory Orders Atorvastatin Ca [Lipitor] 40 mg PO HS 03/09/18 Levothyroxine [Synthroid -] 125 mcg PO DAILY 03/09/18 Phentermine HCl [Adipex-P] 37.5 mg PO HS 03/09/18 Peg 400/Hypromellose/Glycerin [Eye Drop Tears] 15 ml OP BID #1 drops 03/13/18 Prednisone 10 mg PO [facility]IR #30 tablet 03/13/18 dc home
== END 2018-03-13 13:00 | disposition home or self-care (01) | DRG 48 ==
LOC: JER 11:12 → INTOOBSV 14:42 → UNDOADMOB 14:42 → JERBED 14:42 → J4W 16:19 → OBSVTOIN 03-11 18:15
PROVIDERS: ADMIT Internal Medicine; ATTEND Internal Medicine
DX: G51.0 Bell's palsy (principal); R20.0 Anesthesia of skin; I25.10 Atherosclerotic heart disease of native coronary artery without angina pectoris; E78.5 Hyperlipidemia, unspecified; J45.909 Unspecified asthma, uncomplicated; E66.9 Obesity, unspecified; Z68.37 Body mass index [BMI] 37.0-37.9, adult
CPT/HCPCS: 36415; 70450-TC; 70551-TC; 80053; 81003; 82465; 82550; 83036; 83718; 83721; 84478; 84484; 84703; 85025; 85610; 85651; 86140; 86618; 86850; 86900; 86901; 90688; 93005; 93010; 97116-GP; 97162-GP; 99285-25; G0008; G0378; J7030